=== PATIENT | male | born 1955 | race Caucasian/White ===

== ENCOUNTER 2019-07-16 22:33 | Inpatient (IN) | payer MEDICARE, MEDICAID, OTHER ==
[~2019-07-16] VITALS: Ht 177.8 cm; Wt 86.2 kg
[2019-07-16] MEDS ORDERED: CARB-93 PO (23:08)
[2019-07-16] MEDS ORDERED: ACET-2154 PO (23:08)
[2019-07-16] MEDS ORDERED: MULT1TAB73 PO (23:08)
[2019-07-16] MEDS ORDERED: CLON0.5T4 PO (23:08)
[2019-07-16] MEDS ORDERED: DIVA125T2 PO (23:08)
[2019-07-16] MEDS ORDERED: OMEP20TA5 PO (23:08)
[2019-07-16] MEDS ORDERED: FERR325T28 PO (23:08)
[2019-07-16] MEDS ORDERED: OLAN5TAB3 PO (23:08)
[2019-07-16] MEDS ORDERED: AMIN30LI27 PO (23:08)
[2019-07-16] MEDS ORDERED: KRIL500C PO (23:08)
[2019-07-16] MEDS ORDERED: DIVA-78 PO (23:08)
[2019-07-16] MEDS ORDERED: HALOPERIDOL LACTATE 5 MG/1 ML VIAL ONE (23:27)
[2019-07-16] MEDS ORDERED: HALOPERIDOL LACTATE 5 MG/1 ML VIAL IM ONE ×2 (23:30→23:45)
--- NOTE | 2019-07-16 23:52 | NUR ---
Security at bedside, patient in bed, noted with multiple attempts to get out of bed.
[2019-07-16 23:53] LABS: BASOPHILS # (AUTO) 0.1 K/uL (0.0-8.0); BASOPHILS % (AUTO) 1.3 % (0.0-2.0); EOSINOPHILS # (AUTO) 0.1 K/uL (0.0-0.7); EOSINOPHILS % (AUTO) 0.8 % (0.0-7.0); HEMATOCRIT 43.7 % (36.7-47.1); HEMOGLOBIN 15.9 g/dL (12.5-16.3); LYMPHOCYTES # (AUTO) 2.1 K/uL (20.0-40.0); LYMPHOCYTES % (AUTO) 26.1 % (20.5-51.5); MEAN CORPUSCULAR HEMOGLOBIN 34.1 uug (23.8-33.4); MEAN CORPUSCULAR HGB CONC 36 g/dL (32.5-36.3); MEAN CORPUSCULAR VOLUME 93.6 fL (73.0-96.2); MONOCYTES # (AUTO) 0.7 K/uL (2.0-10.0); NEUTROPHILS # (AUTO) 5.1 K/uL (1.8-8.9); NEUTROPHILS % (AUTO) 62.8 % (38.5-71.5); PLATELET COUNT (AUTO) 156 K/uL (152-348); RED BLOOD CELL COUNT(AUTO) 4.67 MIL/uL (4.06-5.63)
[2019-07-16 23:57] LABS: CARBON DIOXIDE 27 mmol/L (21-32); CHLORIDE 103 mmol/L (98-107); CREATININE 2.2 mg/dL (0.6-1.3); GLUCOSE 90 mg/dL (74-106); POTASSIUM 4.3 mmol/L (3.5-5.1); UREA NITROGEN, BLOOD 26 mg/dL (7-18)
[2019-07-17 00:03] LABS: ALANINE AMINOTRANSFERASE 22 U/L (16-63); ALKALINE PHOSPHATASE 90 U/L (50-136); ASPARTATE AMINOTRANSFERASE 22 U/L (15-37); BILIRUBIN,DIRECT 0.1 mg/dL (0.0-0.2); BILIRUBIN,TOTAL 0.4 mg/dL (0.2-1.0); TOTAL PROTEIN, SERUM 7.2 g/dL (6.4-8.2)
[2019-07-17 00:04] LABS: ACETAMINOPHEN < 2.0 ug/mL (10-30)
[2019-07-17 00:08] LABS: ETHANOL < 3 MG/DL (0-0)
[2019-07-17] MEDS ORDERED: KETAMINE HCL 500 MG/10 ML INJ IV ONE (00:30)
--- NOTE | 2019-07-17 01:07 | NUR ---
Report to Anastasia SANTORO on [facility]HU. Pt. admitted to [facility] , under care of Dr. Edmond/Taryn Belongs List completed
[2019-07-17] MEDS ORDERED: ACETAMINOPHEN 325 MG TABLET PO PRN (02:15)
[2019-07-17] MEDS ORDERED: MAG HYDROX/AL HYDROX/SIMETH 30 ML LIQUID UDC PO PRN (02:15)
[2019-07-17] MEDS ORDERED: TEMAZEPAM 7.5 MG CAPSULE PO PRN (02:15)
[2019-07-17] MEDS ORDERED: MAGNESIUM HYDROXIDE 30 ML LIQUID UDC PO PRN (02:15)
[2019-07-17] MEDS ORDERED: LORAZEPAM 1 MG TABLET PO PRN (02:15)
--- NOTE | 2019-07-17 03:09 | NUR ---
Patient received @ 0130 from ER via [employer]. Patient is unkempt, garbled speech patient is agitated, restless, and unpredictable. Patient was unable to answer any questions due to his agitation, restlessness, and confusion. Patient is alert/oriented x1. Patient has unsteady gait with weakness noted. Skin is intact. Patient showered and changed to hospital gown, patient rights and advisement at bedside. Bed in lowest position, bed locked, and bed alarm on while in bed. Patient requires constant redirection will continue to monitor.
[2019-07-17 07:30] VITALS: BP 157/96
[2019-07-17] MEDS: NICOTINE 21 MG/24HR PATCH TD SCH (09:02)
--- NOTE | 2019-07-17 09:52 | NUR ---
Gps/Belting Inspector- Dr Veras called, checking on his patient, was informed patient assigned to Dr Chacon , claimed this is his patient, Charge Nurse was called and was informed, admitting was also called.
--- NOTE | 2019-07-17 10:22 | NUR ---
Social Work Family Contact: craft worker contacted patient's sister Thu ([phone]) to gather collateral. Per Thu, she stated that she is the DPOA and will send the documentations to this press writer. Per Thu, she would want her brother back to [facility]. This press writer will speak to an admin coordinator form [facility].
--- NOTE | 2019-07-17 10:22 | NUR ---
Social Work Initial Discharge: Patient currently resides at [facility] [address] [place] [address]; ([phone]). Per patient's sister Thu PURCELL ([phone]) would want patient back to [facility]. addiction social worker will work with the patient and the MD regarding appropriate discharge planning. addiction social worker will form a safe and proper discharge.
[2019-07-17] MEDS: risperiDONE 0.5 MG TABLET PO SCH ×2 (11:13→20:08)
[2019-07-17] MEDS: MULTIVIT, IRON, MIN NO. 8, FA TABLET PO SCH (11:13)
[2019-07-17] MEDS: FERROUS SULFATE 325 MG TABEC PO SCH (11:13)
--- NOTE | 2019-07-17 11:13 | NUR ---
Social Work Discharge Plan: oil field worker contacted Daja elise from [facility] [address] [place] [address]; ([phone]) who stated that patient is welcomed back upon discharge.
[2019-07-17] MEDS ORDERED: DIVALPROEX 125 MG TABLET.DR PO SCH (13:00)
[2019-07-17] MEDS: CARBIDOPA/LEVODOPA 25-100MG TABLET PO SCH ×2 (13:48→16:15)
[2019-07-17] MEDS: CLONAZEPAM 0.5 MG TABLET PO SCH ×2 (13:49→16:15)
[2019-07-17] MEDS: DIVALPROEX 250 MG TABLET.DR PO SCH ×2 (13:49→20:08)
[2019-07-17 16:36] VITALS: BP 149/89
[2019-07-17 20:47] VITALS: BP 156/82
[2019-07-18] MEDS: PANTOPRAZOLE SODIUM 40 MG TABLET.DR PO SCH (07:00)
[2019-07-18 07:30] VITALS: BP 158/80
[2019-07-18 07:37] LABS: BASOPHILS # (AUTO) 0.1 K/uL (0.0-8.0); BASOPHILS % (AUTO) 0.8 % (0.0-2.0); EOSINOPHILS # (AUTO) 0.1 K/uL (0.0-0.7); EOSINOPHILS % (AUTO) 0.6 % (0.0-7.0); HEMATOCRIT 44.2 % (36.7-47.1); HEMOGLOBIN 15.6 g/dL (12.5-16.3); LYMPHOCYTES # (AUTO) 1.9 K/uL (20.0-40.0); LYMPHOCYTES % (AUTO) 23.7 % (20.5-51.5); MEAN CORPUSCULAR HEMOGLOBIN 33.2 uug (23.8-33.4); MEAN CORPUSCULAR HGB CONC 35 g/dL (32.5-36.3); MEAN CORPUSCULAR VOLUME 94.2 fL (73.0-96.2); MONOCYTES # (AUTO) 0.6 K/uL (2.0-10.0); MONOCYTES % (AUTO) 8.1 % (0.0-11.0); NEUTROPHILS # (AUTO) 5.2 K/uL (1.8-8.9); NEUTROPHILS % (AUTO) 66.8 % (38.5-71.5); PLATELET COUNT (AUTO) 143 K/uL (152-348); RED BLOOD CELL COUNT(AUTO) 4.69 MIL/uL (4.06-5.63); WHITE BLOOD COUNT (AUTO) 7.8 K/uL (3.6-10.2)
[2019-07-18 07:49] LABS: BILIRUBIN,TOTAL 0.5 mg/dL (0.2-1.0); POTASSIUM 4.5 mmol/L (3.5-5.1); TOTAL PROTEIN, SERUM 6.9 g/dL (6.4-8.2)
[2019-07-18 08:14] LABS: MAGNESIUM 2.1 mg/dL (1.8-2.4); PHOSPHOROUS 3.5 mg/dL (2.5-4.9)
[2019-07-18] MEDS: risperiDONE 0.5 MG TABLET PO SCH ×2 (08:56→20:37)
[2019-07-18] MEDS: FERROUS SULFATE 325 MG TABEC PO SCH (08:56)
[2019-07-18] MEDS: DIVALPROEX 250 MG TABLET.DR PO SCH ×3 (08:56→20:37)
[2019-07-18] MEDS: MULTIVIT, IRON, MIN NO. 8, FA TABLET PO SCH (08:57)
[2019-07-18] MEDS: CLONAZEPAM 0.5 MG TABLET PO SCH ×3 (08:57→16:48)
[2019-07-18] MEDS: NICOTINE 21 MG/24HR PATCH TD SCH (08:57)
[2019-07-18] MEDS: CARBIDOPA/LEVODOPA 25-100MG TABLET PO SCH ×3 (08:57→16:48)
--- NOTE | 2019-07-18 14:42 | NUR ---
spinning room worker met with patient for brief individual therapy regarding stress management. Patient presents combative and aggressive behavior. Patient presents with delusional thought content. spinning room worker increased awareness surrounding positive reinforcement. Patient stated that during a stressful situation he gets mad easily, but he also walks away. This typewriters functional tester help patient identifies his frustrations and how to handle stressful situations. spinning room worker provided guidance and education. *No group being held due to coronavirus precautions*
[2019-07-18 15:26] VITALS: BP 122/86
--- NOTE | 2019-07-18 15:49 | NUR ---
Gps/Poultry Dressing Worker- Stayed in his room most of the morning, interacting with the staff, making his needs known. Compliant with most of routine am meds, but still refused to take his depakene, ,claimed it does not agree with him. (Margarita) called wants to know progress., does not want to talk to the patient.
--- NOTE | 2019-07-18 17:41 | NUR ---
Gps/Weather Observer- Unable to collect urine specimen, patient forgets, offered urinal ,
[2019-07-18 20:22] VITALS: BP 127/64
[2019-07-19] MEDS: PANTOPRAZOLE SODIUM 40 MG TABLET.DR PO SCH (06:38)
[2019-07-19 07:30] VITALS: BP 149/94
[2019-07-19] MEDS: MULTIVIT, IRON, MIN NO. 8, FA TABLET PO SCH (09:25)
[2019-07-19] MEDS: DIVALPROEX 250 MG TABLET.DR PO SCH ×3 (09:25→20:19)
[2019-07-19] MEDS: FERROUS SULFATE 325 MG TABEC PO SCH (09:25)
[2019-07-19] MEDS: risperiDONE 0.5 MG TABLET PO SCH (09:25)
[2019-07-19] MEDS: CLONAZEPAM 0.5 MG TABLET PO SCH ×3 (09:25→17:29)
[2019-07-19] MEDS: NICOTINE 21 MG/24HR PATCH TD SCH (09:26)
[2019-07-19] MEDS: CARBIDOPA/LEVODOPA 25-100MG TABLET PO SCH ×3 (09:28→17:31)
[2019-07-19 15:14] VITALS: BP 135/89
--- NOTE | 2019-07-19 18:19 | NUR ---
GPS. Pt. 14/days hold. Pt. HX: Bipolar, Schizo, pt. verbally responsive and making needs known but speak loudly. redirect to use appropriate voice tone. Pt. requesting for cigarette and made aware of continue Nicotine patch. 14/day hold given and verbally advised.
[2019-07-19] MEDS: risperiDONE 1 MG TABLET PO SCH (20:19)
[2019-07-19 20:24] VITALS: BP 126/77
[2019-07-19] MEDS ORDERED: risperiDONE 0.5 MG TABLET PO SCH (21:00)
[2019-07-19] MEDS ORDERED: risperiDONE 1 MG TABLET PO SCH (21:00)
[2019-07-20] MEDS: PANTOPRAZOLE SODIUM 40 MG TABLET.DR PO SCH (06:12)
--- NOTE | 2019-07-20 06:45 | NUR ---
Remain calm and cooperative with meds and care. slept 8 hrs through the night. no agitation noted at this time. continue plan of care.
[2019-07-20 07:30] VITALS: BP 149/78
[2019-07-20] MEDS: DIVALPROEX 250 MG TABLET.DR PO SCH ×2 (08:28→12:39)
[2019-07-20] MEDS: NICOTINE 21 MG/24HR PATCH TD SCH (08:28)
[2019-07-20] MEDS: FERROUS SULFATE 325 MG TABEC PO SCH (08:29)
[2019-07-20] MEDS: CLONAZEPAM 0.5 MG TABLET PO SCH ×3 (08:29→16:58)
[2019-07-20] MEDS: CARBIDOPA/LEVODOPA 25-100MG TABLET PO SCH ×3 (08:38→16:58)
[2019-07-20] MEDS: MULTIVIT, IRON, MIN NO. 8, FA TABLET PO SCH (08:54)
[2019-07-20] MEDS ORDERED: risperiDONE 0.5 MG TABLET PO SCH (09:00)
--- NOTE | 2019-07-20 09:19 | NUR ---
Gps/Solar Project Coordination Specialist- Showered self ind. after set up, steph friedman, stayed in the dinning room during his breakfast, attending his arielle tx.
[2019-07-20 09:38] LABS: BASOPHILS # (AUTO) 0.1 K/uL (0.0-8.0); BASOPHILS % (AUTO) 0.7 % (0.0-2.0); EOSINOPHILS % (AUTO) 0.5 % (0.0-7.0); LYMPHOCYTES # (AUTO) 1.2 K/uL (20.0-40.0); LYMPHOCYTES % (AUTO) 14.3 % (20.5-51.5); MEAN CORPUSCULAR HEMOGLOBIN 33.2 uug (23.8-33.4); MEAN CORPUSCULAR HGB CONC 35 g/dL (32.5-36.3); MEAN CORPUSCULAR VOLUME 93.7 fL (73.0-96.2); MONOCYTES # (AUTO) 0.4 K/uL (2.0-10.0); NEUTROPHILS # (AUTO) 6.5 K/uL (1.8-8.9); NEUTROPHILS % (AUTO) 79.5 % (38.5-71.5); PLATELET COUNT (AUTO) 138 K/uL (152-348); WHITE BLOOD COUNT (AUTO) 8.2 K/uL (3.6-10.2)
[2019-07-20 09:41] LABS: BILIRUBIN,TOTAL 0.6 mg/dL (0.2-1.0); CREATININE 2.2 mg/dL (0.6-1.3); MAGNESIUM 1.9 mg/dL (1.8-2.4); PHOSPHOROUS 3.8 mg/dL (2.5-4.9); POTASSIUM 4.7 mmol/L (3.5-5.1); TOTAL PROTEIN, SERUM 7.4 g/dL (6.4-8.2)
[2019-07-20 15:51] VITALS: BP 145/76
--- NOTE | 2019-07-20 20:00 | NUR ---
RECEIVED PATIENT IN THE DAY ROOM, HE IS NOTED A/O X1, ABLE TO AMBULATE WITH BROAD BUT STEADY GAIT, AND ABLE TO MAKE HIS NEEDS KNOWN. PATIENT NOTED WITH IMPAIRED INSIGHT AND JUDGMENT TO THE REASON FOR HIS ADMISSION TO [facility]. HE IS NOTED TANGENTAL, HYPERVERBAL. NO AGGRESSIVE/COMBATIVE BX NOTED AT THIS TIME. PATIENT DENIED SI/HI/VH/AH/ HE IS ABLE TO CFS. PT IS REASSURED FOR HIS SAFETY. SAFETY AND FALL PRECAUTION IN PLACE. V/S STABLE. WILL CONTINUE TO MONITOR.
[2019-07-20] MEDS: DIVALPROEX 500 MG TABLET.DR PO SCH (20:55)
[2019-07-20] MEDS: risperiDONE 1 MG TABLET PO SCH (20:55)
[2019-07-20 21:00] VITALS: BP 134/67
[2019-07-20] MEDS ORDERED: DIVALPROEX 125 MG TABLET.DR PO SCH (21:00)
[2019-07-21] MEDS: PANTOPRAZOLE SODIUM 40 MG TABLET.DR PO SCH (07:09)
[2019-07-21 07:30] VITALS: BP 142/93
[2019-07-21 08:06] LABS: A/G RATIO 1.3 (0.7-1.7); ALBUMIN 3.8 g/dL (2.9-4.4); ALPHA-1-GLOBULIN 0.2 g/dL (0.0-0.4); ALPHA-2-GLOBULIN 0.6 g/dL (0.4-1.0); GAMMA GLOBULIN 1.1 g/dL (0.4-1.8); GLOBULIN, TOTAL 2.9 g/dL (2.2-3.9); M-SPIKE Not Observed g/dL (Not Observed)
[2019-07-21] MEDS: DIVALPROEX 500 MG TABLET.DR PO SCH ×2 (08:49→20:27)
[2019-07-21] MEDS: CARBIDOPA/LEVODOPA 25-100MG TABLET PO SCH ×3 (08:49→16:24)
[2019-07-21] MEDS: FERROUS SULFATE 325 MG TABEC PO SCH (08:50)
[2019-07-21] MEDS: NICOTINE 21 MG/24HR PATCH TD SCH (08:50)
[2019-07-21] MEDS: risperiDONE 0.5 MG TABLET PO SCH (08:50)
[2019-07-21] MEDS: MULTIVIT, IRON, MIN NO. 8, FA TABLET PO SCH (08:50)
--- NOTE | 2019-07-21 10:54 | NUR ---
Received patient awake in his assigned bed, bed is in low and locked position. He is alert and oriented to person only. Patient is able to ambulate independently, able to provide self care and ADL's independently. Patient is child like in behavior, making bizarre comments during conversation and unable to maintain linear conversation. but is cooperative and redirectable. Patient denies SI/HI, denies AH/VH. Patient is adherent with medication, no adverse reaction noted. Patient is provided with education about impulse control, verbalizes understanding. Encouraged to participate in unit groups and activities as part of the therapeutic milieu.
[2019-07-21 13:16] LABS: *BILIRUBIN,URIN NEGATIVE (NEGATIVE); *CLARITY,URINE CLOUDY (CLEAR); *COLOR,URINE YELLOW (YELLOW); *KETONES,URINE NEGATIVE (NEGATIVE); *UROBILINOGEN,URINE 0.2 E.U./dl (NORMAL); LEUKOCYTE ESTERASE ,URINE 3+ (NEGATIVE); NITRITE, URINE NEGATIVE (NEGATIVE); PH,URINE 5.5 (5.0-8.0); UGLUCOSE NEGATIVE (NEGATIVE)
[2019-07-21] MEDS: DIVALPROEX 250 MG TABLET.DR PO SCH (13:20)
[2019-07-21] MEDS: CLONAZEPAM 1 MG TABLET PO SCH ×2 (13:20→16:24)
[2019-07-21 13:24] LABS: *BLOOD, URINE TRACE (NEGATIVE)
[2019-07-21 13:32] LABS: BACTERIA,URINE NONE SEEN /HPF (NONE SEEN); RBC,URINE 20-50 /HPF (0-3)
[2019-07-21 13:33] LABS: WBC,URINE TNTC /HPF (0-3)
[2019-07-21 13:37] LABS: MUCUS,URINE FEW /LPF (0-FEW); SQUAMOUS EPITHELIAL CELL,UR FEW /HPF (NONE SEEN)
[2019-07-21] MEDS: NITROFURANTOIN/NITROFURAN MAC 100 MG CAPSULE PO SCH ×2 (15:39→20:27)
[2019-07-21 16:00] VITALS: BP 140/87
[2019-07-21] MEDS: CLONAZEPAM 0.5 MG TABLET PO SCH (16:51)
[2019-07-21 20:00] VITALS: BP 142/86
--- NOTE | 2019-07-21 20:00 | NUR ---
RECEIVED PATIENT IN THE DAY ROOM WATCHING TV. HE IS NOTED A/O X 1. HE IS NOTED WITH DISORGANIZED SPEECH. BIZARRE BX. HYPERSEXUAL AND HYPERVERBAL. PATIENT REQUIRED MULTIPLE REDIRECTIONS. PT IS REASSURED FOR HIS SAFETY. SAFETY AND FALL PRECAUTION IN PLACE. WILL CONTINUE TO MONITOR.
[2019-07-21] MEDS: risperiDONE 1 MG TABLET PO SCH (20:27)
[2019-07-22] MEDS: PANTOPRAZOLE SODIUM 40 MG TABLET.DR PO SCH (06:39)
[2019-07-22 07:30] VITALS: BP 156/87
[2019-07-22] MEDS: DIVALPROEX 500 MG TABLET.DR PO SCH ×2 (09:19→21:04)
[2019-07-22] MEDS: MULTIVIT, IRON, MIN NO. 8, FA TABLET PO SCH (09:19)
[2019-07-22] MEDS: CARBIDOPA/LEVODOPA 25-100MG TABLET PO SCH ×3 (09:19→17:06)
[2019-07-22] MEDS: FERROUS SULFATE 325 MG TABEC PO SCH (09:19)
[2019-07-22 09:24] LABS: BASOPHILS # (AUTO) 0.1 K/uL (0.0-8.0); BASOPHILS % (AUTO) 0.7 % (0.0-2.0); EOSINOPHILS # (AUTO) 0.1 K/uL (0.0-0.7); EOSINOPHILS % (AUTO) 0.7 % (0.0-7.0); HEMATOCRIT 48.2 % (36.7-47.1); LYMPHOCYTES # (AUTO) 1.4 K/uL (20.0-40.0); LYMPHOCYTES % (AUTO) 17.9 % (20.5-51.5); MEAN CORPUSCULAR HEMOGLOBIN 33.4 uug (23.8-33.4); MEAN CORPUSCULAR HGB CONC 35 g/dL (32.5-36.3); MEAN CORPUSCULAR VOLUME 94.6 fL (73.0-96.2); MONOCYTES # (AUTO) 0.5 K/uL (2.0-10.0); MONOCYTES % (AUTO) 6.8 % (0.0-11.0); NEUTROPHILS # (AUTO) 5.9 K/uL (1.8-8.9); NEUTROPHILS % (AUTO) 73.9 % (38.5-71.5); PLATELET COUNT (AUTO) 151 K/uL (152-348); RED BLOOD CELL COUNT(AUTO) 5.09 MIL/uL (4.06-5.63)
[2019-07-22] MEDS: risperiDONE 0.5 MG TABLET PO SCH (09:25)
[2019-07-22] MEDS: NICOTINE 21 MG/24HR PATCH TD SCH (09:27)
[2019-07-22] MEDS: CLONAZEPAM 0.5 MG TABLET PO SCH ×3 (09:28→17:06)
[2019-07-22 09:32] LABS: CREATININE 2.1 mg/dL (0.6-1.3); MAGNESIUM 2.2 mg/dL (1.8-2.4); POTASSIUM 4.6 mmol/L (3.5-5.1)
[2019-07-22] MEDS: NITROFURANTOIN/NITROFURAN MAC 100 MG CAPSULE PO SCH ×2 (09:42→21:04)
[2019-07-22 11:20] LABS: *URINE TOTAL PROTEIN RANDOM 10.4 mg/dL (<150/24HR)
[2019-07-22 11:46] LABS: *BILIRUBIN,URIN NEGATIVE (NEGATIVE); *BLOOD, URINE NEGATIVE (NEGATIVE); *CLARITY,URINE CLEAR (CLEAR); *COLOR,URINE YELLOW (YELLOW); *KETONES,URINE NEGATIVE (NEGATIVE); *UROBILINOGEN,URINE 0.2 E.U./dl (NORMAL); LEUKOCYTE ESTERASE ,URINE TRACE (NEGATIVE); NITRITE, URINE NEGATIVE (NEGATIVE); UGLUCOSE NEGATIVE (NEGATIVE)
[2019-07-22 11:53] LABS: BACTERIA,URINE FEW /HPF (NONE SEEN); RBC,URINE NONE SEEN /HPF (0-3); SQUAMOUS EPITHELIAL CELL,UR FEW /HPF (NONE SEEN)
[2019-07-22] MEDS: DIVALPROEX 250 MG TABLET.DR PO SCH (13:09)
[2019-07-22 16:59] VITALS: BP 153/84
[2019-07-22 20:00] VITALS: BP 165/90
[2019-07-22] MEDS ORDERED: risperiDONE 1 MG TABLET PO SCH (21:00)
[2019-07-22] MEDS: risperiDONE 2 MG TABLET PO SCH (21:04)
[2019-07-23] MEDS: PANTOPRAZOLE SODIUM 40 MG TABLET.DR PO SCH (06:53)
[2019-07-23 07:30] VITALS: BP 139/81
[2019-07-23] MEDS: NICOTINE 21 MG/24HR PATCH TD SCH (09:00)
[2019-07-23] MEDS: NITROFURANTOIN/NITROFURAN MAC 100 MG CAPSULE PO SCH ×2 (09:16→20:38)
[2019-07-23] MEDS: FERROUS SULFATE 325 MG TABEC PO SCH (09:16)
[2019-07-23] MEDS: DIVALPROEX 500 MG TABLET.DR PO SCH ×2 (09:16→20:38)
[2019-07-23] MEDS: CLONAZEPAM 0.5 MG TABLET PO SCH ×3 (09:16→17:01)
[2019-07-23] MEDS: MULTIVIT, IRON, MIN NO. 8, FA TABLET PO SCH (09:16)
[2019-07-23] MEDS: risperiDONE 0.5 MG TABLET PO SCH (09:16)
[2019-07-23] MEDS: CARBIDOPA/LEVODOPA 25-100MG TABLET PO SCH ×3 (09:21→17:01)
--- NOTE | 2019-07-23 10:31 | NUR ---
Social Work PC Hearing Notification: mud jack nozzle worker contacted patient's sister Thu, ([phone]) and notified patients probable cause of hearing today.
--- NOTE | 2019-07-23 12:08 | NUR ---
Received patient awake, bed is in low and locked position. He is alert and oriented to person only. He requires frequent reality orientation. Patient is able to ambulate independently, able to provide self care and ADL's independently. Patient is child like in behavior, making bizarre comments during conversation, and is sexually inappropriate with staff. He is unable to maintain linear or logical conversation. Patient denies SI/HI, denies AH/VH. Patient is adherent with medication, no adverse reaction noted. Patient is provided with education about impulse control and communicating needs appropriately, verbalizes understanding. Encouraged to participate in unit groups and activities as part of the therapeutic milieu.
[2019-07-23] MEDS: DIVALPROEX 250 MG TABLET.DR PO SCH (12:43)
--- NOTE | 2019-07-23 12:49 | NUR ---
Patient is agitated, angry, and demanding staff to let him discharge. Patient walked to the nurses station and when staff attempted to redirect patient, he became increasingly angry and began to threaten staff. Patient requires multiple attempts at redirection and reality orientation, requires limit setting for child-like and impulsive behavior. Patient adherent with 1300 PO medications. MD notified of patients behavior. Will continue to monitor.
[2019-07-23 16:09] VITALS: BP 142/108
[2019-07-23] MEDS ORDERED: ZIPRASIDONE MESYLATE 20 MG VIAL IM ONE (17:15)
--- NOTE | 2019-07-23 17:36 | NUR ---
Patient became agitated, angry, verbally threatened nursing staff, and throwing items around the dining room. Patient is also sexually inappropriate, stating "I like to masturbate" and then grabbing his penis to show nursing staff. Patient focused on discharge, frequently saying "I'm being discharged today." Patient was provided with redirection and reality orientation, educated about impulse control but education is ineffective at this time due to patient's aggressive behavior. Orders received for Geodon 5 mg IM stat. Security notified. IM given without adverse reaction. Patient in his room in his assigned bed.
[2019-07-23 20:31] VITALS: BP 133/73
[2019-07-23] MEDS: risperiDONE 2 MG TABLET PO SCH (20:38)
--- NOTE | 2019-07-23 21:36 | NUR ---
Received patient in bed, asleep. No behavioral issue at this time. Patient is med compliant. Patient will remain in a psych facility for further evaluation and treatment. Will continue to monitor patient for safety and behavior.
[2019-07-24] MEDS: PANTOPRAZOLE SODIUM 40 MG TABLET.DR PO SCH (06:32)
[2019-07-24 07:30] VITALS: BP_SYST 135; BP_SYST 145; BP_DIAS 66; BP_DIAS 86
[2019-07-24] MEDS: MULTIVIT, IRON, MIN NO. 8, FA TABLET PO SCH (10:00)
[2019-07-24] MEDS: NICOTINE 21 MG/24HR PATCH TD SCH (10:00)
[2019-07-24] MEDS: CARBIDOPA/LEVODOPA 25-100MG TABLET PO SCH ×3 (10:01→16:51)
[2019-07-24] MEDS: risperiDONE 0.5 MG TABLET PO SCH (10:01)
[2019-07-24] MEDS: DIVALPROEX 500 MG TABLET.DR PO SCH ×2 (10:01→21:01)
[2019-07-24] MEDS: CLONAZEPAM 0.5 MG TABLET PO SCH ×3 (10:02→16:52)
[2019-07-24] MEDS: FERROUS SULFATE 325 MG TABEC PO SCH (10:02)
[2019-07-24 16:00] VITALS: BP 153/85
--- NOTE | 2019-07-24 20:00 | NUR ---
RECEIVED PATIENT STANDING UP BY THE NURSING STATION. HE IS NOTED A/O X 1, ABLE TO AMBULATE WITH BROAD BUT STEADY GAIT. HE IS NOTED INTRUSIVE AND DEMANDING. AFFECT IS LABILE, MOOD IS IRRITABLE. HE DENIED SI/HI//AH. HE IS ABLE TO CFS. PT IS REDIRECTABLE. PATIENT IS REASSURED FOR HIS SAFETY. SAFETY AND FALL PRECAUTION IN PLACE. V/S STABLE. WILL CONTINUE TO MONITOR.
[2019-07-24 20:15] VITALS: BP 139/73
[2019-07-24] MEDS: risperiDONE 2 MG TABLET PO SCH (21:01)
[2019-07-25] MEDS: PANTOPRAZOLE SODIUM 40 MG TABLET.DR PO SCH (06:19)
--- NOTE | 2019-07-25 07:11 | NUR ---
GPS: Pt. slept approx 5.15min, up during night singing with loud voice. Was able to redirect pt. Left pt up in TV room.
[2019-07-25 07:30] VITALS: BP 137/79
[2019-07-25 07:58] LABS: CREATININE 1.8 mg/dL (0.6-1.3); PHOSPHOROUS 3.5 mg/dL (2.5-4.9)
[2019-07-25 08:16] LABS: BASOPHILS # (AUTO) 0.1 K/uL (0.0-8.0); BASOPHILS % (AUTO) 0.7 % (0.0-2.0); EOSINOPHILS # (AUTO) 0.1 K/uL (0.0-0.7); EOSINOPHILS % (AUTO) 0.7 % (0.0-7.0); HEMATOCRIT 45.8 % (36.7-47.1); HEMOGLOBIN 16.2 g/dL (12.5-16.3); LYMPHOCYTES # (AUTO) 1.4 K/uL (20.0-40.0); LYMPHOCYTES % (AUTO) 18.1 % (20.5-51.5); MEAN CORPUSCULAR HEMOGLOBIN 33.5 uug (23.8-33.4); MEAN CORPUSCULAR HGB CONC 35 g/dL (32.5-36.3); MEAN CORPUSCULAR VOLUME 94.7 fL (73.0-96.2); MONOCYTES # (AUTO) 0.6 K/uL (2.0-10.0); MONOCYTES % (AUTO) 7.7 % (0.0-11.0); NEUTROPHILS # (AUTO) 5.7 K/uL (1.8-8.9); NEUTROPHILS % (AUTO) 72.8 % (38.5-71.5); PLATELET COUNT (AUTO) 151 K/uL (152-348); RED BLOOD CELL COUNT(AUTO) 4.84 MIL/uL (4.06-5.63); WHITE BLOOD COUNT (AUTO) 7.8 K/uL (3.6-10.2)
[2019-07-25] MEDS: DIVALPROEX 500 MG TABLET.DR PO SCH ×3 (10:09→20:30)
[2019-07-25] MEDS: risperiDONE 0.5 MG TABLET PO SCH (10:10)
[2019-07-25] MEDS: NICOTINE 21 MG/24HR PATCH TD SCH (10:10)
[2019-07-25] MEDS: CARBIDOPA/LEVODOPA 25-100MG TABLET PO SCH ×3 (10:10→17:23)
[2019-07-25] MEDS: FERROUS SULFATE 325 MG TABEC PO SCH (10:19)
[2019-07-25] MEDS: MULTIVIT, IRON, MIN NO. 8, FA TABLET PO SCH (10:19)
[2019-07-25] MEDS: CLONAZEPAM 0.5 MG TABLET PO SCH ×3 (10:19→17:23)
[2019-07-25] MEDS ORDERED: DIVALPROEX 250 MG TABLET.DR PO SCH (13:00)
[2019-07-25 16:00] VITALS: BP 149/78
[2019-07-25] MEDS: risperiDONE 2 MG TABLET PO SCH (20:30)
[2019-07-25 20:33] VITALS: BP 138/86
--- NOTE | 2019-07-25 21:44 | NUR ---
PATIENT RECEIVED IN BED AWAKE.PATIENT CONTINUES TO SAY HE IS BEING DISCHARGED IN THE MONRNING. PATIENT ALERT/ORIENTED X1 REQUIRES REDIRECTION. PATIENT COMPLAINT WITH MEDICATION DENIES PAIN AT THIS TIME, WILL CONTINUE TO MONITOR. NO AGGRESSIVE OR COMBATIVE BEHAVIOR NOTED WILL CONTINUE TO MONITOR.
[2019-07-26] MEDS: PANTOPRAZOLE SODIUM 40 MG TABLET.DR PO SCH (06:21)
[2019-07-26 07:30] VITALS: BP 141/80
--- NOTE | 2019-07-26 07:30 | NUR ---
oob , in tv room, quiet, comfortable. denied distress.
[2019-07-26] MEDS: CARBIDOPA/LEVODOPA 25-100MG TABLET PO SCH ×3 (09:05→16:40)
[2019-07-26] MEDS: MULTIVIT, IRON, MIN NO. 8, FA TABLET PO SCH (09:06)
[2019-07-26] MEDS: DIVALPROEX 500 MG TABLET.DR PO SCH ×3 (09:06→20:47)
[2019-07-26] MEDS: FERROUS SULFATE 325 MG TABEC PO SCH (09:06)
[2019-07-26] MEDS: CLONAZEPAM 0.5 MG TABLET PO SCH ×3 (09:06→16:40)
[2019-07-26] MEDS: NICOTINE 21 MG/24HR PATCH TD SCH (09:15)
[2019-07-26] MEDS: risperiDONE 0.5 MG TABLET PO SCH (09:15)
--- NOTE | 2019-07-26 09:21 | NUR ---
right deltoid nicoderm patch applied.
[2019-07-26 16:37] VITALS: BP 125/76
[2019-07-26 20:18] VITALS: BP 149/83
[2019-07-26] MEDS: risperiDONE 2 MG TABLET PO SCH (20:47)
--- NOTE | 2019-07-27 00:24 | NUR ---
RECEIVED PATIENT IN [facility].HE IS HYPERVERBAL BUT MED COMPLIANT.HE HAS POOR IMPULSE CONTROL HE ATTEMPTED TO TOUCH STAFF IN ACTIVITY ROOM. HE WAS RE DIRECTED. LATER WENT TO SLEEP. SAFE ENVIRONMENT PROVIDED. VISUAL CHECKS MADE ON HIM.WILL CONTINUE TO MONITOR.
--- NOTE | 2019-07-27 06:31 | NUR ---
SLEPT FOR 7;30HRS. TOOK HIS MEDICATIONS.
[2019-07-27] MEDS: PANTOPRAZOLE SODIUM 40 MG TABLET.DR PO SCH (06:33)
[2019-07-27 07:07] LABS: BASOPHILS % (AUTO) 0.5 % (0.0-2.0); EOSINOPHILS # (AUTO) 0.1 K/uL (0.0-0.7); EOSINOPHILS % (AUTO) 0.9 % (0.0-7.0); HEMOGLOBIN 15.7 g/dL (12.5-16.3); LYMPHOCYTES # (AUTO) 1.7 K/uL (20.0-40.0); LYMPHOCYTES % (AUTO) 22.6 % (20.5-51.5); MEAN CORPUSCULAR HEMOGLOBIN 33.4 uug (23.8-33.4); MEAN CORPUSCULAR HGB CONC 36 g/dL (32.5-36.3); MEAN CORPUSCULAR VOLUME 93.9 fL (73.0-96.2); MONOCYTES # (AUTO) 0.6 K/uL (2.0-10.0); MONOCYTES % (AUTO) 7.8 % (0.0-11.0); NEUTROPHILS % (AUTO) 68.2 % (38.5-71.5); PLATELET COUNT (AUTO) 146 K/uL (152-348); RED BLOOD CELL COUNT(AUTO) 4.69 MIL/uL (4.06-5.63); WHITE BLOOD COUNT (AUTO) 7.4 K/uL (3.6-10.2)
[2019-07-27 07:16] LABS: CREATININE 2.1 mg/dL (0.6-1.3); MAGNESIUM 2.2 mg/dL (1.8-2.4); PHOSPHOROUS 3.8 mg/dL (2.5-4.9); POTASSIUM 4.5 mmol/L (3.5-5.1)
[2019-07-27 07:30] VITALS: BP 165/100
[2019-07-27] MEDS: CARBIDOPA/LEVODOPA 25-100MG TABLET PO SCH ×3 (08:46→16:34)
[2019-07-27] MEDS: FERROUS SULFATE 325 MG TABEC PO SCH (08:46)
[2019-07-27] MEDS: MULTIVIT, IRON, MIN NO. 8, FA TABLET PO SCH (08:46)
[2019-07-27] MEDS: CLONAZEPAM 0.5 MG TABLET PO SCH ×3 (08:46→16:34)
[2019-07-27] MEDS: risperiDONE 2 MG TABLET PO SCH ×2 (08:46→20:12)
[2019-07-27] MEDS: DIVALPROEX 500 MG TABLET.DR PO SCH ×3 (08:46→20:12)
[2019-07-27] MEDS: NICOTINE 21 MG/24HR PATCH TD SCH (08:46)
[2019-07-27] MEDS ORDERED: risperiDONE 0.5 MG TABLET PO SCH (09:00)
[2019-07-27 17:06] VITALS: BP 148/97
[2019-07-27 20:00] VITALS: BP 117/65
[2019-07-27] MEDS: ZOLPIDEM 5 MG TABLET PO PRN (21:22)
[2019-07-28] MEDS: PANTOPRAZOLE SODIUM 40 MG TABLET.DR PO SCH (06:02)
[2019-07-28] MEDS: DIVALPROEX 500 MG TABLET.DR PO SCH ×3 (08:33→20:24)
[2019-07-28] MEDS: FERROUS SULFATE 325 MG TABEC PO SCH (08:33)
[2019-07-28] MEDS: MULTIVIT, IRON, MIN NO. 8, FA TABLET PO SCH (08:34)
[2019-07-28] MEDS: risperiDONE 2 MG TABLET PO SCH ×2 (08:34→20:24)
[2019-07-28] MEDS: CLONAZEPAM 0.5 MG TABLET PO SCH ×3 (08:34→16:57)
[2019-07-28] MEDS: CARBIDOPA/LEVODOPA 25-100MG TABLET PO SCH ×3 (08:34→16:57)
[2019-07-28] MEDS: NICOTINE 21 MG/24HR PATCH TD SCH (08:34)
--- NOTE | 2019-07-28 09:13 | NUR ---
Received patient awake, alert and oriented to person and place sitting quietly in the dining room. Patient is cooperative and redirectable at this time. He denies SI/HI, denies AH/Vh but appears internally preoccupied. Patient is medication adherent, no adverse reaction noted. Patient is able to tolerate food and fluids. Able to provide self care and ADL's independently. Able to ambulate independently. Provided with education about impulse control, verbalizes understanding. Will continue to monitor.
[2019-07-28 10:46] VITALS: BP 147/97
[2019-07-28 15:14] VITALS: BP 144/78
--- NOTE | 2019-07-28 15:17 | NUR ---
Social Work Discharge Plan Update: room worker called and spoke with [facility] contact, Arianna (Charge Nurse) and Daja (Provider Contracting Consultant) [ ) and informed them that pt is being discharged today and they states that the facility is ready to accept pt today. STEPHANIE faxed updated clinicals to Arianna, Charge Nurse, at [phone].
--- NOTE | 2019-07-28 15:19 | NUR ---
Social Work Discharge Note: Pt will be discharged back to [facility] [Address: [address] [place] [address]; ] and transportation will be provided via ambulance at 7:00PM. Pt is [id number], is aware of discharge plans, and denies suicidal ideation. signal worker called and spoke with facility contact, Arianna (Charge Nurse) and Daja (Vamper) [ ) who state they are ready to accept pt today. SW faxed updated clinicals to Arianna, Charge Nurse, at [phone].Patient will follow up with psychiatrist Dr. Veras and pt was also provided with outpatient mental health referrals for [facility] ( ), [facility] ( ) and [facility] ( ). Pt was also provided with a brief substance abuse intervention and provided with resources including [facility] [[address] [place] [address]; [phone]], [facility] [[address] [place] [address]; [phone]], [facility] [[address] [place] [address]; [phone]; ], and Substance Abuse and Mental Health Services Administration (SAMHSA) National Hotline [8-015-471-GNKO (3136)].
[2019-07-28] MEDS ORDERED: CLONIDINE HCL 0.2 MG TABLET PO STA (19:42)
[2019-07-28] MEDS ORDERED: CLONIDINE HCL 0.2 MG TABLET ONE (19:57)
[2019-07-28 20:00] VITALS: BP 162/86
[2019-07-28 20:55] VITALS: BP 182/93
[2019-07-28 20:56] VITALS: BP 175/102
[2019-07-28] MEDS: ZOLPIDEM 5 MG TABLET PO PRN (21:37)
[2019-07-28 23:22] VITALS: BP 120/63
[2019-07-28] MEDS ORDERED: CLONIDINE HCL 0.1 MG TABLET PO PRN (23:30)
[2019-07-29] MEDS: PANTOPRAZOLE SODIUM 40 MG TABLET.DR PO SCH (06:00)
--- NOTE | 2019-07-29 06:25 | NUR ---
Received Pt in the hallway with staff and 2 executive director awaiting discharge. Pt's BP elevated after multiple checks manually and with the machine. Dr Valentino notified and Clonidine 0.2mg stat MRx1 in 15 minutes ordered. Clonidine administered as ordered with little effect. BP upon re check was 182/93 and 172/100. Pt is asymptomatic and denies headache, dizziness, or SOB. By this time, the transport was cancelled by the ambulance company, Dr Veras notified of the situation and cancelled discharge. Pt given his HS medications and BP was re checked and 150/88. Pt is anxious and angry over the postponed discharge, but redirectable. Pt denies pain and all other VS stable.
[2019-07-29 07:30] VITALS: BP 126/78
[2019-07-29] MEDS: MULTIVIT, IRON, MIN NO. 8, FA TABLET PO SCH (08:15)
[2019-07-29] MEDS: CLONAZEPAM 0.5 MG TABLET PO SCH ×2 (08:16→12:12)
[2019-07-29] MEDS: DIVALPROEX 500 MG TABLET.DR PO SCH ×2 (08:16→12:14)
[2019-07-29] MEDS: CARBIDOPA/LEVODOPA 25-100MG TABLET PO SCH ×2 (08:16→12:12)
[2019-07-29] MEDS: FERROUS SULFATE 325 MG TABEC PO SCH (08:16)
[2019-07-29] MEDS: risperiDONE 2 MG TABLET PO SCH (08:22)
[2019-07-29] MEDS: NICOTINE 21 MG/24HR PATCH TD SCH (08:22)
--- NOTE | 2019-07-29 09:40 | NUR ---
Social Work Individual Therapy Note: fibreglass lay up worker met with patient for brief counseling to address patients delusional thought content. Patient has been more cooperative with this marketing writer.This marketing writer assessed to see if patient is experiencing auditory/visual hallucinations. Patient expressed that he sees "girls" and that he will meet with them at "[facility]". This marketing writer assessed for patient's safety and if he is in danger. Patient stated that he is not and that he enjoys these "girls". This marketing writer encouraged if he feels in danger to contact either this marketing writer or the nursing staff. This marketing writer comforted patient and actively listened.
--- NOTE | 2019-07-29 10:20 | NUR ---
Social Work Discharge Note: Patient will be discharged to long-term facility to [facility] [address] [place] [address]; ([phone]) via ambulance transportation at 12PM. Patients sister Thu ([phone]) is aware and agreeable of the discharge plan. Detacker spoke with Daja admin coordinator ([phone]), who stated patient will be accepted at facility today. Patient is alert and oriented x1-2, and is not able to plan for self-care at this time, but is willing to accept care provided for her at the facility. Patient denies any suicidal or homicidal ideations. Patient is aware and agreeable with discharge plans. Patient does not have any family members. Patient will continue to follow-up with her Psychiatrist Dr. Veras and Building Maintenance Superintendent Dr. Jones at [facility]. Patient will follow-up at the center. Patient presents with euthymic mood and congruent affect.
[2019-07-29 15:02] VITALS: BP 138/61
--- NOTE | 2019-07-29 15:37 | NUR ---
received discharge order to [facility] [address] [place] [address]; via ambulance transportation at 3PM. Patients sister Thu ([phone]) is aware and agreeable of the discharge plan. Patient will continue to follow-up at the facility with her Psychiatrist Dr. Veras and Information Systems Coordinator Dr. Jones at [facility]. Belonging accounted and signed. id band removed. questions and concerns addressed. no c/o pain and no SOB noted. gave report th YVAN Keller at [facility]
== END 2019-07-29 15:30 | DRG 885 ==
LOC: ER 22:38 → GPS 07-17 01:14
PROVIDERS: ADMIT Psychiatry & Neurology Psychiatry; ATTEND Nurse Practitioner Acute Care
DX: F25.9 Schizoaffective disorder, unspecified (principal); N18.4 Chronic kidney disease, stage 4 (severe); N17.0 Acute kidney failure with tubular necrosis; G93.41 Metabolic encephalopathy; I50.22 Chronic systolic (congestive) heart failure; N39.0 Urinary tract infection, site not specified; F29 Unspecified psychosis not due to a substance or known physiological condition; G20 Parkinson's disease; K21.9 Gastro-esophageal reflux disease without esophagitis; J44.9 Chronic obstructive pulmonary disease, unspecified; D50.9 Iron deficiency anemia, unspecified; F17.200 Nicotine dependence, unspecified, uncomplicated; F41.9 Anxiety disorder, unspecified; H26.9 Unspecified cataract; N28.1 Cyst of kidney, acquired; Z79.899 Other long term (current) drug therapy; F39 Unspecified mood [affective] disorder; F31.89 Other bipolar disorder
CPT/HCPCS: 36415; 76770; 80164; 83735; 83970; 84100; 84155; 84156; 84165; 84300; 85025; 87086; 93005; A4663; G0480; G0480-TC; J1630; J3486; J3490